=== PATIENT | male | born 1980 | race Two or more races ===

== ENCOUNTER 2019-10-25 20:43 | Emergency (ER) | payer MEDICAID ==
[~2019-10-25] VITALS: Ht 167.6 cm; Wt 77.0 kg
[2019-10-25 21:17] VITALS: BP 115/61
== END 2019-10-25 23:01 | disposition home or self-care (01) ==
LOC: ER 20:43
DX: B35.3 Tinea pedis (principal)
CPT/HCPCS: 99282